=== PATIENT | male | born 1985 | race Hispanic/Latino ===

== ENCOUNTER 2024-04-11 11:01 | Emergency (ER) | payer MEDICAID, SELFPAY ==
--- NOTE | ~2024-04-11 | XR_ITS ---
EXAMINATION: XR chest 2V DATE: 04/11/2024 11:45 INDICATION: Productive cough. TECHNIQUE: Frontal and lateral views of the chest were obtained. COMPARISON: None. FINDINGS: There is no pneumonia, pleural effusion, or pneumothorax. The heart size is normal. IMPRESSION: 1. No acute cardiopulmonary disease. Reviewed, dictated and finalized at location A. [facility]
--- NOTE | 2024-04-11 11:05 | ED_ITS ---
HPI - URI/Sore Throat General Chief Complaint: Upper Respiratory Infection Stated Complaint: Cough Time Seen by Provider: 04/11/24 11:05 Source: patient Mode of arrival: ambulatory Limitations: no limitations History of Present Illness HPI Narrative: Mal is a 38-year-old male patient presenting to the clinic today with complaints of cough x1 0.5 weeks. He he reports he does feel like he is mildly shortness of breath. Symptoms started with flu-like symptoms and all his other symptoms have improved other than the cough. States he is coughing up some yellow phlegm with some blood in it. Denies any chest pain. MD elicited complaint: sore throat and nasal congestion Related Data Home Medications ?Medication ?Instructions ?Recorded ?Confirmed ?Last Taken ?Type atorvastatin 20 mg tablet 20 mg PO QPM 04/11/24 04/11/24 Unknown History metformin 1,000 mg tablet 1,000 mg PO BID 04/11/24 04/11/24 Unknown History Allergies Allergy/AdvReac Type Severity Reaction Status Date / Time No Known Allergies Allergy Verified 04/11/24 11:34 Review of Systems Review of Systems: Pertinent positives per HPI. Patient denies any fever, chills, rash, headache, visual changes, dizziness, chest pain, palpitations, nausea, vomiting, diarrhea, constipation, abdominal pain, or any urinary issues. PMFSH Comments At the time of my signature, I reviewed and agree with the nursing past medical, surgical, social, and family history. There is no relevant family history pertinent to the patient complaint. Exam Narrative: General: Well-developed, well nourished, in no apparent distress Head: Normocephalic, atraumatic Eyes: Pupils equally round and reactive to light bilaterally, EOM intact, sclera and conjunctive clear, no discharge, lids normal Ears: TMs intact and clear, ear canals clear, no drainage, grossly hearing normal. Nose: Nares patent, clear nasal discharge, no inflammation, no sinus tenderness. Mouth: Oral pharynx without lesions or masses, good dentition, MMM. Neck: Supple, trachea midline, no enlargement of anterior or posterior cervical nodes, no thyroid masses or goiter palpable. Cardio: Regular rate and rhythm, s1 and s2 normal, no murmur appreciated. Resp: Crackles throughout lung pierre, no rhonchi, wheezing or rubs Course Course Emergency Course: Portions of this record may have been created with voice recognition software. Level of Care: Express Care Visit Vital Signs Vital signs: Vital Signs Temperature 37.0 C 04/11/24 11:13 Pulse Rate 88 04/11/24 11:13 Respiratory Rate 16 04/11/24 11:13 Blood Pressure 151/91 H 04/11/24 11:13 Pulse Oximetry 98 04/11/24 11:13 Oxygen Delivery Room Air 04/11/24 11:13 Temperature 37.0 C 04/11/24 11:13 Pulse Rate 88 04/11/24 11:13 Respiratory Rate 16 04/11/24 11:13 Blood Pressure 151/91 H 04/11/24 11:13 Pulse Oximetry 98 04/11/24 11:13 Oxygen Delivery Room Air 04/11/24 11:13 Vital signs reviewed MDM - URI/Sore Throat MDM Narrative Medical decision making narrative: At the time of visit patient is resting comfortably on the exam table. Patient appears to be nontoxic. Diagnostics: Chest x-ray is negative for any acute cardiopulmonary process. Plan: I suspect patient has bronchitis. Patient's symptoms have been going on for 10 days and he is coughing up yellow phlegm was some blood in it. Prescription for azithromycin, prednisone, and albuterol inhaler was sent to the pharmacy Supportive measures were discussed with the patient and they voiced understanding discharge instructions and agrees to treatment plan. Return precautions reviewed Differential Diagnosis Differential diagnosis: Likely upper respiratory infection, otitis media, sinusitis, viral infection, bronchitis, influenza, pharyngitis and other (COVID) Imaging Data Radiologist's impression: ITS Impressions Chest X-Ray 04/11/24 11:53 IMPRESSION: 1. No acute cardiopulmonary disease. Discharge Plan Discharge Clinical Impression: Bronchitis Patient Disposition: Home, Self-Care Condition: Stable Instructions: Antibiotic Form, Acute Bronchitis (ED) Additional Instructions: Take prescription medications only as prescribed-prednisone, azithromycin, and albuterol inhaler Increase fluids and stay well hydrated Tylenol/motrin for pain/fever Flonase and OTC antihistamines as directed Vicks vapor rub to open sinuses Sinus rinses for congestion Cepacol spray, cough drops, throat lozenges, warm tea with honey/lemon, gargle salt water to soothe throat BRAT diet for diarrhea Clear liquids x 24 hours then advance as tolerated for nausea/vomiting Go to the ED if you develop a worsening in your condition- high fever not controlled by Tylenol or Motrin, dehydration, weakness, lethargy, shortness of breath, or chest pain. Follow up with your PCP in 3-5 days if symptoms persist. Patient Language: Gabonese Prescriptions: New azithromycin 250 mg tablet See Rx Instructions .ROUTE .COMPLEX Qty: 6 0RF Rx Instructions: For 250 mg dose pack: take 500 mg today (day 1), then 250 mg for 4 days (days 2-5) prednisone 20 mg tablet 40 mg PO DAILY 5 Days Qty: 10 0RF albuterol sulfate 90 mcg/actuation HFA aerosol inhaler 2 puff inhalation Q4-6H PRN (Reason: shortness of breath or wheezing) 30 Days Qty: 8.5 0RF No Action atorvastatin 20 mg tablet 20 mg PO QPM metformin 1,000 mg tablet 1,000 mg PO BID Follow-up/Referrals: Melly Patel RN [Primary Care Provider] - Time of Disposition: 11:59 Quality NIHSS Nursing Documentation ED NIHSS nursing documentation: reviewed/agree
[2024-04-11 11:13] VITALS: BP 151/91; PULSE 88; RESP 16; TEMP 37; O2SAT 98
== END 2024-04-11 12:10 | disposition home or self-care (01) ==
PROVIDERS: Emergency Provider Nurse Practitioner Family; PCP Registered Nurse
DX: J40 Bronchitis, not specified as acute or chronic (principal); Z79.899 Other long term (current) drug therapy; Z79.84 Long term (current) use of oral hypoglycemic drugs
CPT/HCPCS: 71046; 99203; G0463